=== PATIENT | female | born 1965 | race Asian ===

== ENCOUNTER → 2018-01-24 | Outpatient (CLI) | payer OTHER ==
[2018-01-25 08:07] LABS: RUBEOLA (MEASLES) IGG >300.0 AU/mL (Immune >29.9)
== END | disposition home or self-care (01) ==
LOC: EMPHLTH 12:51
PROVIDERS: ATTEND Internal Medicine
DX: Z02.1 Encounter for pre-employment examination (principal)
CPT/HCPCS: 86706; 86735; 86762; 86765; 86787

== ENCOUNTER → 2018-05-26 | Outpatient (CLI) | payer OTHER ==
[2018-05-26 12:12] LABS: BASOPHILS % (AUTO) 0.6 % (0.0-2.0); EOSINOPHILS % (AUTO) 1.3 % (1.0-6.0); HEMATOCRIT 41.6 % (36-46); HEMOGLOBIN 13.7 g/dL (12.0-16.0); LYMPHOCYTES # (AUTO) 1.5 K/uL (1.0-4.8); LYMPHOCYTES % (AUTO) 23.3 % (22.0-44.0); MEAN CORPUSCULAR HEMOGLOBIN 27.5 pg (26.0-34.0); MEAN CORPUSCULAR VOLUME 83 fL (80-100); MONOCYTES # (AUTO) 0.4 K/uL (0.1-1.0); MONOCYTES % (AUTO) 5.9 % (2.0-9.0); NEUTROPHILS # (AUTO) 4.4 K/uL (1.8-7.7); NEUTROPHILS % (AUTO) 68.9 % (40.0-70.0); PLATELET COUNT (AUTO) 229 K/uL (150-450); RED BLOOD CELL COUNT(AUTO) 4.99 MIL/uL (4.00-5.20); RED CELL DISTRIBUTION WIDTH 13.9 % (11.5-14.5)
[2018-05-26 13:09] LABS: ALANINE AMINOTRANSFERASE 15 U/L (12-78); ALBUMIN 3.8 g/dL (3.4-5.0); ALKALINE PHOSPHATASE 86 U/L (46-116); ANION GAP 7 mmol/L (8-16); ASPARTATE AMINOTRANSFERASE 21 U/L (15-37); BILIRUBIN,TOTAL 0.3 mg/dL (0.1-1.0); CALCIUM, TOTAL 9.1 mg/dL (8.8-10.5); CARBON DIOXIDE 29 mmol/L (22-29); CHLORIDE 102 mmol/L (98-107); CHOL/HDL RATIO 4.7 (3.9-5.7); CHOLESTEROL 228 mg/dL (131-200); CREATININE 0.72 mg/dL (0.60-1.30); GLOMERULAR FILTR. RATE CALC > 60 mL/min (>60); GLUCOSE,RANDOM 92 mg/dL (70-110); HDL CHOLESTEROL 49 mg/dL (40-60); LDL CHOL (CALC.) 153 mg/dL (0-130); POTASSIUM 4.2 mmol/L (3.5-5.1); SODIUM SERUM 138 mmol/L (136-145); THYROID STIMULATING HORMONE 1.74 uIU/mL (0.36-3.74); TOTAL PROTEIN, SERUM 7.8 g/dL (6.4-8.2); TRIGLYCERIDES 128 mg/dL (15-150); UREA NITROGEN, BLOOD 19 mg/dL (7-18)
== END | disposition home or self-care (01) ==
LOC: LABPV 08:00
PROVIDERS: ATTEND Internal Medicine
DX: Z12.11 Encounter for screening for malignant neoplasm of colon (principal); R10.9 Unspecified abdominal pain
CPT/HCPCS: 82306; 84443

== ENCOUNTER → 2018-08-01 | Outpatient (CLI) | payer OTHER | END | disposition home or self-care (01) | LOC: RADPV 07:48 | PROVIDERS: ATTEND Internal Medicine Infectious Disease | DX: K80.20 Calculus of gallbladder without cholecystitis without obstruction (principal); K76.0 Fatty (change of) liver, not elsewhere classified | CPT/HCPCS: 76700 ==

== ENCOUNTER 2018-08-22 18:19 | Emergency (ER) | payer OTHER ==
[~2018-08-22] VITALS: Ht 157.5 cm; Wt 65.9 kg
[2018-08-22] MEDS ORDERED: RANI150T7 PO (18:37)
[2018-08-22] MEDS ORDERED: ATOR40TA28 PO (18:37)
[2018-08-22] MEDS ORDERED: OMEP20 PO (18:37)
[2018-08-22 19:24] LABS: BASOPHILS % (AUTO) 0.2 % (0.0-2.0); EOSINOPHILS % (AUTO) 2.2 % (1.0-6.0); HEMATOCRIT 41.6 % (36-46); HEMOGLOBIN 13.7 g/dL (12.0-16.0); LYMPHOCYTES # (AUTO) 0.6 K/uL (1.0-4.8); MEAN CORPUSCULAR HEMOGLOBIN 27.2 pg (26.0-34.0); MEAN CORPUSCULAR VOLUME 82 fL (80-100); MONOCYTES # (AUTO) 0.7 K/uL (0.1-1.0); MONOCYTES % (AUTO) 6.4 % (2.0-9.0); PLATELET COUNT (AUTO) 223 K/uL (150-450); RED BLOOD CELL COUNT(AUTO) 5.04 MIL/uL (4.00-5.20); RED CELL DISTRIBUTION WIDTH 14.5 % (11.5-14.5)
[2018-08-22 19:25] LABS: NEUTROPHILS % (AUTO) 86.2 % (40.0-70.0)
[2018-08-22 19:36] LABS: ANION GAP 11 mmol/L (8-16); CALCIUM, TOTAL 9.2 mg/dL (8.8-10.5); CARBON DIOXIDE 25 mmol/L (22-29); CHLORIDE 105 mmol/L (98-107); CREATININE 0.72 mg/dL (0.60-1.30); GLOMERULAR FILTR. RATE CALC > 60 mL/min (>60); GLUCOSE,RANDOM 106 mg/dL (70-110); POTASSIUM 3.8 mmol/L (3.5-5.1); SODIUM SERUM 141 mmol/L (136-145); UREA NITROGEN, BLOOD 13 mg/dL (7-18)
[2018-08-22 19:45] LABS: ALANINE AMINOTRANSFERASE 36 U/L (12-78); ALBUMIN 4.1 g/dL (3.4-5.0); ALKALINE PHOSPHATASE 141 U/L (46-116); ASPARTATE AMINOTRANSFERASE 77 U/L (15-37); BILIRUBIN,TOTAL 0.6 mg/dL (0.1-1.0); LIPASE 182 U/L (73-393); TOTAL PROTEIN, SERUM 8.2 g/dL (6.4-8.2)
[2018-08-22 21:52] VITALS: BP 148/100
[2018-08-22] MEDS ORDERED: SODIUM CHLORIDE 0.9% 1,000 ML IV ONE (22:00)
[2018-08-22] MEDS ORDERED: KETOROLAC TROMETHAMINE 30 MG/ML VIAL IVP ONE (22:00)
== END 2018-08-22 23:37 | disposition home or self-care (01) ==
LOC: EMS 18:20
DX: K80.20 Calculus of gallbladder without cholecystitis without obstruction (principal); N95.9 Unspecified menopausal and perimenopausal disorder
CPT/HCPCS: 36415; 76700; 80053; 83690; 84484; 85025; 93005; 96374; 99284; J1885; J7030

== ENCOUNTER → 2018-08-28 | Outpatient (CLI) | payer OTHER ==
[~2018-08-28] MED LIST: ATOR40TA28 PO; IOVERSOL 350 MG/ML 100 ML VIAL ONE; OMEP20 PO; RANI150T7 PO; SODIUM CHLORIDE 0.9% 100 ML ONE
== END | disposition home or self-care (01) ==
LOC: RADMN 08:22
PROVIDERS: ATTEND Internal Medicine
DX: K80.20 Calculus of gallbladder without cholecystitis without obstruction (principal); K57.10 Diverticulosis of small intestine without perforation or abscess without bleeding
CPT/HCPCS: 74177; J7050; Q9967

== ENCOUNTER → 2018-09-26 | Outpatient (CLI) | payer OTHER ==
[~2018-09-26] MED LIST changes: -IOVERSOL 350 MG/ML 100 ML VIAL ONE; -SODIUM CHLORIDE 0.9% 100 ML ONE
[2018-09-26 12:46] LABS: BASOPHILS % (AUTO) 0.6 % (0.0-2.0); EOSINOPHILS % (AUTO) 2.4 % (1.0-6.0); HEMATOCRIT 41.9 % (36-46); HEMOGLOBIN 13.7 g/dL (12.0-16.0); LYMPHOCYTES # (AUTO) 1.9 K/uL (1.0-4.8); MEAN CORPUSCULAR HEMOGLOBIN 27.5 pg (26.0-34.0); MEAN CORPUSCULAR HGB CONC 32.7 G/dL (31.0-37.0); MEAN CORPUSCULAR VOLUME 84 fL (80-100); MONOCYTES # (AUTO) 0.4 K/uL (0.1-1.0); MONOCYTES % (AUTO) 5.7 % (2.0-9.0); NEUTROPHILS # (AUTO) 5.2 K/uL (1.8-7.7); NEUTROPHILS % (AUTO) 67.3 % (40.0-70.0); PLATELET COUNT (AUTO) 231 K/uL (150-450); RED BLOOD CELL COUNT(AUTO) 4.99 MIL/uL (4.00-5.20); RED CELL DISTRIBUTION WIDTH 14.3 % (11.5-14.5)
[2018-09-26 13:25] LABS: ALANINE AMINOTRANSFERASE 8 U/L (12-78); ALKALINE PHOSPHATASE 96 U/L (46-116); ANION GAP 6 mmol/L (8-16); ASPARTATE AMINOTRANSFERASE 19 U/L (15-37); BILIRUBIN,TOTAL 0.4 mg/dL (0.1-1.0); CALCIUM, TOTAL 8.8 mg/dL (8.8-10.5); CARBON DIOXIDE 29 mmol/L (22-29); CHLORIDE 107 mmol/L (98-107); CHOL/HDL RATIO 5.9 (3.9-5.7); CHOLESTEROL 234 mg/dL (131-200); CREATININE 0.75 mg/dL (0.60-1.30); GLOMERULAR FILTR. RATE CALC > 60 mL/min (>60); GLUCOSE,RANDOM 93 mg/dL (70-110); HDL CHOLESTEROL 40 mg/dL (40-60); LDL CHOL (CALC.) 171 mg/dL (0-130); SODIUM SERUM 142 mmol/L (136-145); TOTAL PROTEIN, SERUM 8.1 g/dL (6.4-8.2); TRIGLYCERIDES 115 mg/dL (15-150); UREA NITROGEN, BLOOD 19 mg/dL (7-18)
== END | disposition home or self-care (01) ==
LOC: LABPV 09:35
PROVIDERS: ATTEND Internal Medicine
DX: E78.5 Hyperlipidemia, unspecified (principal); Z79.899 Other long term (current) drug therapy

== ENCOUNTER → 2018-10-10 | Day surgery (SDC) | payer OTHER ==
[2018-10-09 15:00] LABS: BASOPHILS % (AUTO) 0.6 % (0.0-2.0); EOSINOPHILS % (AUTO) 3.8 % (1.0-6.0); HEMATOCRIT 42.2 % (36-46); HEMOGLOBIN 13.6 g/dL (12.0-16.0); LYMPHOCYTES # (AUTO) 1.8 K/uL (1.0-4.8); LYMPHOCYTES % (AUTO) 21.3 % (22.0-44.0); MEAN CORPUSCULAR HEMOGLOBIN 27.6 pg (26.0-34.0); MEAN CORPUSCULAR HGB CONC 32.4 G/dL (31.0-37.0); MEAN CORPUSCULAR VOLUME 85 fL (80-100); MONOCYTES # (AUTO) 0.5 K/uL (0.1-1.0); MONOCYTES % (AUTO) 6.1 % (2.0-9.0); NEUTROPHILS # (AUTO) 5.9 K/uL (1.8-7.7); NEUTROPHILS % (AUTO) 68.2 % (40.0-70.0); PLATELET COUNT (AUTO) 229 K/uL (150-450); RED BLOOD CELL COUNT(AUTO) 4.94 MIL/uL (4.00-5.20)
[2018-10-09 15:32] LABS: ALANINE AMINOTRANSFERASE 12 U/L (12-78); ALBUMIN 4.1 g/dL (3.4-5.0); ALKALINE PHOSPHATASE 99 U/L (46-116); ANION GAP 8 mmol/L (8-16); ASPARTATE AMINOTRANSFERASE 13 U/L (15-37); BILIRUBIN,TOTAL 0.3 mg/dL (0.1-1.0); CALCIUM, TOTAL 9.8 mg/dL (8.8-10.5); CARBON DIOXIDE 28 mmol/L (22-29); CHLORIDE 105 mmol/L (98-107); CREATININE 0.87 mg/dL (0.60-1.30); GLOMERULAR FILTR. RATE CALC > 60 mL/min (>60); GLUCOSE,RANDOM 98 mg/dL (70-110); HCG,QUANTITATIVE 3 mIU/mL (0-6); POTASSIUM 4.1 mmol/L (3.5-5.1); SODIUM SERUM 141 mmol/L (136-145); TOTAL PROTEIN, SERUM 8.2 g/dL (6.4-8.2); UREA NITROGEN, BLOOD 18 mg/dL (7-18)
[~2018-10-10] VITALS: Ht 157.5 cm; Wt 66.0 kg
[~2018-10-10] MED LIST changes: +0.9% SODIUM CHLORIDE 10 ML VIAL IVP ONE; +ACETAMINOPHEN 500 MG TABLET PO PRN; +BUPIVACAINE HCL/PF 0.5% 30 ML VIAL ONE; +CeFAZolin 2 GM/DEXTROSE 50 ML IV ONE; +DEXAMETHASONE SOD PHOS 4 MG/ML VIAL IVP ONE; +FentaNYL CITRATE-PF 100 MCG/2 ML VIAL IVP ONE; +FentaNYL CITRATE-PF 100 MCG/2 ML VIAL IVP PRN; +HYDROmorphone 2 MG/ML SYRINGE IVP PRN; +HYDROmorphone 2 MG/ML SYRINGE ONE; +IBUPROFEN 600 MG TABLET PO PRN; +IBUPROFEN 800 MG TABLET ONE; +IBUPROFEN 800 MG TABLET PO PRN; +IOHEXOL 240 MG/ML 20 ML VIAL ONE; +KETOROLAC TROMETHAMINE 60 MG/2 ML VIAL IM ONE; +LIDOCAINE 2%/EPI 1:200,000/PF 20 ML VIAL ONE; +LIDOCAINE/PF 2% 5 ML VIAL IM ONE; +MEPERIDINE-PF 25 MG/ML VIAL IVP PRN; +MEPERIDINE-PF 25 MG/ML VIAL ONE; +MIDAZOLAM HCL 2 MG/2 ML VIAL IVP ONE; +MetroNIDAZOLE 500 MG/NACL 100 ML IV ONE; +OMEG-135 PO; +ONDANSETRON HCL 4 MG/2 ML VIAL IVP ONE; +PROPOFOL 1% 20 ML VIAL IVP ONE; +RINGERS SOLUTION,LACTATED 0 ML IV ONE; +RINGERS SOLUTION,LACTATED 1,000 ML IV ONE; +ROCURONIUM BROMIDE 10 MG/ML 5 ML VIAL IVP ONE; +SODIUM CHLORIDE 0.9% IRRIG BAG 0 ML IRRIG ONE; +SUCCINYLCHOLINE CHLORIDE 20 MG/ML 10 ML VIAL IVP ONE; +SUGAMMADEX SODIUM 200 MG/2 ML VIAL IVP ONE; +VITAD1000 PO
== END | disposition home or self-care (01) ==
LOC: SURGERY 12:00 → EEVIPCON 14:00
PROVIDERS: ATTEND Surgery
DX: K80.10 Calculus of gallbladder with chronic cholecystitis without obstruction (principal); E78.5 Hyperlipidemia, unspecified; Z79.899 Other long term (current) drug therapy; Z82.49 Family history of ischemic heart disease and other diseases of the circulatory system; Z98.890 Other specified postprocedural states
CPT/HCPCS: 36415; 47562; 80053; 84702; 85025; 88304; 93005; J0330; J0690; J1100; J1170; J1885; J2175; J2250; J2405; J2704; J3010; J3490 ×4; J7120; Q9966

== ENCOUNTER → 2019-09-15 | Outpatient (CLI) | payer OTHER ==
[~2019-09-15] MED LIST changes: -0.9% SODIUM CHLORIDE 10 ML VIAL IVP ONE; -ACETAMINOPHEN 500 MG TABLET PO PRN; -BUPIVACAINE HCL/PF 0.5% 30 ML VIAL ONE; +CHOL100018 PO; -CeFAZolin 2 GM/DEXTROSE 50 ML IV ONE; -DEXAMETHASONE SOD PHOS 4 MG/ML VIAL IVP ONE; -FentaNYL CITRATE-PF 100 MCG/2 ML VIAL IVP ONE; -FentaNYL CITRATE-PF 100 MCG/2 ML VIAL IVP PRN; -HYDROmorphone 2 MG/ML SYRINGE IVP PRN; -HYDROmorphone 2 MG/ML SYRINGE ONE; -IBUPROFEN 600 MG TABLET PO PRN; -IBUPROFEN 800 MG TABLET ONE; -IBUPROFEN 800 MG TABLET PO PRN; -IOHEXOL 240 MG/ML 20 ML VIAL ONE; -KETOROLAC TROMETHAMINE 60 MG/2 ML VIAL IM ONE; -LIDOCAINE 2%/EPI 1:200,000/PF 20 ML VIAL ONE; -LIDOCAINE/PF 2% 5 ML VIAL IM ONE; -MEPERIDINE-PF 25 MG/ML VIAL IVP PRN; -MEPERIDINE-PF 25 MG/ML VIAL ONE; -MIDAZOLAM HCL 2 MG/2 ML VIAL IVP ONE; -MetroNIDAZOLE 500 MG/NACL 100 ML IV ONE; -ONDANSETRON HCL 4 MG/2 ML VIAL IVP ONE; -PROPOFOL 1% 20 ML VIAL IVP ONE; -RINGERS SOLUTION,LACTATED 0 ML IV ONE; -RINGERS SOLUTION,LACTATED 1,000 ML IV ONE; -ROCURONIUM BROMIDE 10 MG/ML 5 ML VIAL IVP ONE; -SODIUM CHLORIDE 0.9% IRRIG BAG 0 ML IRRIG ONE; -SUCCINYLCHOLINE CHLORIDE 20 MG/ML 10 ML VIAL IVP ONE; -SUGAMMADEX SODIUM 200 MG/2 ML VIAL IVP ONE; -VITAD1000 PO
[2019-09-16 07:04] LABS: BASOPHILS % (AUTO) 0.8 % (0.0-2.0); EOSINOPHILS % (AUTO) 0.9 % (1.0-6.0); HEMATOCRIT 44.3 % (36-46); HEMOGLOBIN 14.4 g/dL (12.0-16.0); LYMPHOCYTES # (AUTO) 1.4 K/uL (1.0-4.8); LYMPHOCYTES % (AUTO) 18.8 % (22.0-44.0); MEAN CORPUSCULAR HEMOGLOBIN 27.4 pg (26.0-34.0); MEAN CORPUSCULAR HGB CONC 32.5 G/dL (31.0-37.0); MEAN CORPUSCULAR VOLUME 84 fL (80-100); MONOCYTES # (AUTO) 0.5 K/uL (0.1-1.0); MONOCYTES % (AUTO) 6.4 % (2.0-9.0); NEUTROPHILS # (AUTO) 5.5 K/uL (1.8-7.7); NEUTROPHILS % (AUTO) 73.1 % (40.0-70.0); PLATELET COUNT (AUTO) 256 K/uL (150-450); RED BLOOD CELL COUNT(AUTO) 5.25 MIL/uL (4.00-5.20); RED CELL DISTRIBUTION WIDTH 14.3 % (11.5-14.5)
[2019-09-16 07:11] LABS: HEMOGLOBIN A1C 6.1 % (3.8-5.6)
[2019-09-16 07:28] LABS: ALANINE AMINOTRANSFERASE 14 U/L (12-78); ALBUMIN 4.2 g/dL (3.4-5.0); ALKALINE PHOSPHATASE 86 U/L (46-116); ANION GAP 11 mmol/L (8-16); ASPARTATE AMINOTRANSFERASE 12 U/L (15-37); BILIRUBIN,TOTAL 0.5 mg/dL (0.1-1.0); CALCIUM, TOTAL 9.2 mg/dL (8.8-10.5); CARBON DIOXIDE 30 mmol/L (22-29); CHLORIDE 105 mmol/L (98-107); CHOL/HDL RATIO 4.4 (3.9-5.7); CHOLESTEROL 230 mg/dL (131-200); CREATININE 0.96 mg/dL (0.60-1.30); GLOMERULAR FILTR. RATE CALC > 60 mL/min (>60); GLUCOSE,RANDOM 115 mg/dL (70-110); HDL CHOLESTEROL 52 mg/dL (40-60); LDL CHOL (CALC.) 144 mg/dL (0-130); POTASSIUM 3.2 mmol/L (3.5-5.1); SODIUM SERUM 146 mmol/L (136-145); THYROID STIMULATING HORMONE 1.53 uIU/mL (0.36-3.74); TRIGLYCERIDES 169 mg/dL (15-150); UREA NITROGEN, BLOOD 11 mg/dL (7-18)
== END | disposition home or self-care (01) ==
LOC: LABMN 11:15
PROVIDERS: ATTEND Internal Medicine
DX: Z12.31 Encounter for screening mammogram for malignant neoplasm of breast (principal); E78.5 Hyperlipidemia, unspecified; Z79.899 Other long term (current) drug therapy
CPT/HCPCS: 83036; 84443

== ENCOUNTER → 2019-11-05 | Outpatient (CLI) | payer OTHER ==
[2019-11-05 12:48] LABS: ANION GAP 7 mmol/L (8-16); CARBON DIOXIDE 29 mmol/L (22-29); CHLORIDE 110 mmol/L (98-107); CREATININE 0.64 mg/dL (0.60-1.30); GLOMERULAR FILTR. RATE CALC > 60 mL/min (>60); GLUCOSE,RANDOM 102 mg/dL (70-110); POTASSIUM 3.6 mmol/L (3.5-5.1); SODIUM SERUM 146 mmol/L (136-145); UREA NITROGEN, BLOOD 11 mg/dL (7-18)
== END | disposition home or self-care (01) ==
LOC: LABPV 11:22
PROVIDERS: ATTEND Internal Medicine
DX: E78.6 Lipoprotein deficiency (principal)

== ENCOUNTER → 2020-02-25 | Outpatient (CLI) | payer OTHER ==
[2020-02-25 12:32] LABS: ALANINE AMINOTRANSFERASE 10 U/L (12-78); ALBUMIN 4.1 g/dL (3.4-5.0); ALKALINE PHOSPHATASE 83 U/L (46-116); ANION GAP 10 mmol/L (8-16); ASPARTATE AMINOTRANSFERASE 17 U/L (15-37); BILIRUBIN,TOTAL 0.3 mg/dL (0.1-1.0); CALCIUM, TOTAL 9.7 mg/dL (8.8-10.5); CARBON DIOXIDE 28 mmol/L (22-29); CHLORIDE 105 mmol/L (98-107); CHOLESTEROL 234 mg/dL (131-200); GLOMERULAR FILTR. RATE CALC > 60 mL/min (>60); GLUCOSE,RANDOM 117 mg/dL (70-110); HDL CHOLESTEROL 49 mg/dL (40-60); POTASSIUM 3.9 mmol/L (3.5-5.1); SODIUM SERUM 143 mmol/L (136-145); TOTAL PROTEIN, SERUM 8.1 g/dL (6.4-8.2); TRIGLYCERIDES 119 mg/dL (15-150); UREA NITROGEN, BLOOD 18 mg/dL (7-18)
[2020-02-25 12:33] LABS: CHOL/HDL RATIO 4.8 (3.9-5.7); LDL CHOL (CALC.) 161 mg/dL (0-130)
== END | disposition home or self-care (01) ==
LOC: LABPV 09:15
PROVIDERS: ATTEND Internal Medicine
DX: E87.6 Hypokalemia (principal); Z00.00 Encounter for general adult medical examination without abnormal findings
CPT/HCPCS: 82088; 82306; 84244

== ENCOUNTER → 2020-08-16 | Outpatient (CLI) | payer OTHER ==
[2020-08-16 09:36] LABS: BASOPHILS % (AUTO) 0.8 % (0.0-2.0); EOSINOPHILS % (AUTO) 1.4 % (1.0-6.0); HEMATOCRIT 41.7 % (36-46); HEMOGLOBIN 13.6 g/dL (12.0-16.0); LYMPHOCYTES # (AUTO) 1.4 K/uL (1.0-4.8); LYMPHOCYTES % (AUTO) 18.9 % (22.0-44.0); MEAN CORPUSCULAR HEMOGLOBIN 28.1 pg (26.0-34.0); MEAN CORPUSCULAR HGB CONC 32.6 G/dL (31.0-37.0); MEAN CORPUSCULAR VOLUME 86 fL (80-100); MONOCYTES # (AUTO) 0.5 K/uL (0.1-1.0); MONOCYTES % (AUTO) 6.7 % (2.0-9.0); NEUTROPHILS # (AUTO) 5.2 K/uL (1.8-7.7); NEUTROPHILS % (AUTO) 72.2 % (40.0-70.0); PLATELET COUNT (AUTO) 231 K/uL (150-450); RED BLOOD CELL COUNT(AUTO) 4.84 MIL/uL (4.00-5.20); RED CELL DISTRIBUTION WIDTH 14.1 % (11.5-14.5)
[2020-08-16 09:55] LABS: HEMOGLOBIN A1C 5.6 % (3.8-5.6)
[2020-08-16 09:56] LABS: ALANINE AMINOTRANSFERASE 13 U/L (12-78); ALBUMIN 4.1 g/dL (3.4-5.0); ALKALINE PHOSPHATASE 79 U/L (46-116); ANION GAP 8 mmol/L (8-16); ASPARTATE AMINOTRANSFERASE 14 U/L (15-37); BILIRUBIN,TOTAL 0.5 mg/dL (0.1-1.0); CALCIUM, TOTAL 9.2 mg/dL (8.8-10.5); CARBON DIOXIDE 29 mmol/L (22-29); CHLORIDE 104 mmol/L (98-107); CHOL/HDL RATIO 3.3 (3.9-5.7); CHOLESTEROL 173 mg/dL (131-200); CREATININE 0.77 mg/dL (0.60-1.30); GLOMERULAR FILTR. RATE CALC > 60 mL/min (>60); GLUCOSE,RANDOM 104 mg/dL (70-110); HDL CHOLESTEROL 53 mg/dL (40-60); LDL CHOL (CALC.) 93 mg/dL (0-130); POTASSIUM 3.6 mmol/L (3.5-5.1); SODIUM SERUM 141 mmol/L (136-145); THYROID STIMULATING HORMONE 2.66 uIU/mL (0.36-3.74); TOTAL PROTEIN, SERUM 7.7 g/dL (6.4-8.2); TRIGLYCERIDES 133 mg/dL (15-150); UREA NITROGEN, BLOOD 21 mg/dL (7-18)
== END | disposition home or self-care (01) ==
LOC: LABPV 07:16
PROVIDERS: ATTEND Internal Medicine
DX: Z79.899 Other long term (current) drug therapy (principal); E78.5 Hyperlipidemia, unspecified
CPT/HCPCS: 80053; 80061; 82306; 83036; 84443; 85025

== ENCOUNTER → 2020-08-24 | Outpatient (CLI) | payer OTHER ==
[2020-08-25 10:07] LABS: HEPATITIS C AB (EIA) <0.1 s/co ratio (0.0-0.9); HIV 1-2 SCREEN 4TH GEN W/RFLX Non Reactive (Non Reactive)
== END | disposition home or self-care (01) ==
LOC: LABPV 10:19
PROVIDERS: ATTEND Internal Medicine
DX: Z11.3 Encounter for screening for infections with a predominantly sexual mode of transmission (principal); Z11.59 Encounter for screening for other viral diseases
CPT/HCPCS: 86317; 86704; 86706; 86709; 87340; 87389

== ENCOUNTER 2020-09-26 13:46 | Emergency (ER) | payer OTHER ==
[~2020-09-26] VITALS: Ht 162.6 cm; Wt 68.2 kg
[2020-09-26] MEDS ORDERED: SODIUM CHLORIDE 0.9% 1,000 ML IV ONE (15:15)
[2020-09-26] MEDS: MECLIZINE HCL 25 MG TABLET PO ONE ×2 (15:18→15:23)
[2020-09-26 15:39] LABS: BASOPHILS % (AUTO) 0.5 % (0.0-2.0); EOSINOPHILS % (AUTO) 0.6 % (1.0-6.0); HEMATOCRIT 39.6 % (36-46); LYMPHOCYTES # (AUTO) 1.4 K/uL (1.0-4.8); LYMPHOCYTES % (AUTO) 20.5 % (22.0-44.0); MEAN CORPUSCULAR HEMOGLOBIN 28.2 pg (26.0-34.0); MEAN CORPUSCULAR HGB CONC 32.8 G/dL (31.0-37.0); MEAN CORPUSCULAR VOLUME 86 fL (80-100); MONOCYTES # (AUTO) 0.6 K/uL (0.1-1.0); MONOCYTES % (AUTO) 8.2 % (2.0-9.0); NEUTROPHILS # (AUTO) 4.8 K/uL (1.8-7.7); NEUTROPHILS % (AUTO) 70.2 % (40.0-70.0); PLATELET COUNT (AUTO) 202 K/uL (150-450); RED BLOOD CELL COUNT(AUTO) 4.61 MIL/uL (4.00-5.20); RED CELL DISTRIBUTION WIDTH 13.7 % (11.5-14.5)
[2020-09-26 15:51] LABS: ANION GAP 10 mmol/L (8-16); CALCIUM, TOTAL 8.9 mg/dL (8.8-10.5); CARBON DIOXIDE 29 mmol/L (22-29); CHLORIDE 106 mmol/L (98-107); CREATININE 0.67 mg/dL (0.60-1.30); GLOMERULAR FILTR. RATE CALC > 60 mL/min (>60); GLUCOSE,RANDOM 92 mg/dL (70-110); POTASSIUM 3.5 mmol/L (3.5-5.1); SODIUM SERUM 145 mmol/L (136-145); UREA NITROGEN, BLOOD 17 mg/dL (7-18)
[2020-09-26 16:03] LABS: ALANINE AMINOTRANSFERASE 11 U/L (12-78); ALBUMIN 3.8 g/dL (3.4-5.0); ALKALINE PHOSPHATASE 79 U/L (46-116); ASPARTATE AMINOTRANSFERASE 14 U/L (15-37); BILIRUBIN,TOTAL 0.4 mg/dL (0.1-1.0); HCG,QUANTITATIVE 4 mIU/mL (0-6); PHOSPHORUS 3.5 mg/dL (2.5-4.9); TOTAL PROTEIN, SERUM 7.5 g/dL (6.4-8.2)
[2020-09-26 16:37] VITALS: BP 136/70
== END 2020-09-26 16:40 | disposition home or self-care (01) ==
LOC: EMS 13:53
DX: R42 Dizziness and giddiness (principal); R53.1 Weakness; M54.2 Cervicalgia; E78.00 Pure hypercholesterolemia, unspecified
CPT/HCPCS: 36415; 70450; 80053; 83735; 84100; 84484; 84702; 85025; 93005; 96360; 99285; J7030

== ENCOUNTER → 2020-11-07 | Outpatient (CLI) | payer OTHER | END | disposition home or self-care (01) | LOC: LABPV 09:49 | PROVIDERS: ATTEND Internal Medicine | DX: Z12.11 Encounter for screening for malignant neoplasm of colon (principal) | CPT/HCPCS: 82274 ==

== ENCOUNTER 2021-01-10 10:21 | Emergency (ER) | payer OTHER ==
[~2021-01-10] VITALS: Ht 162.6 cm; Wt 61.0 kg
[2021-01-10] MEDS ORDERED: LIDOCAINE 5% TRANSDERMAL PATCH TD ONE (11:15)
[2021-01-10] MEDS ORDERED: IBUPROFEN 600 MG TABLET PO ONE (11:15)
[2021-01-10 11:45] VITALS: BP 127/91
[2021-01-19] MEDS ORDERED: ROSU10TA72 PO (15:40)
== END 2021-01-10 12:02 | disposition home or self-care (01) ==
LOC: EMS 10:24
DX: S30.0XXA Contusion of lower back and pelvis, initial encounter (principal); E78.00 Pure hypercholesterolemia, unspecified; Z79.899 Other long term (current) drug therapy; W01.198A Fall on same level from slipping, tripping and stumbling with subsequent striking against other object, initial encounter; Y93.89 Activity, other specified; Y92.89 Other specified places as the place of occurrence of the external cause; Y99.8 Other external cause status
CPT/HCPCS: 99283

== ENCOUNTER 2021-01-20 07:10 | Day surgery (SDC) | payer OTHER ==
[2021-01-19 15:26] LABS: COVID AG,FIA SOURCE NASOPHARYNGEAL
[2021-01-19 15:28] LABS: BASOPHILS % (AUTO) 0.4 % (0.0-2.0); EOSINOPHILS % (AUTO) 1.2 % (1.0-6.0); HEMATOCRIT 41.4 % (36-46); HEMOGLOBIN 13.6 g/dL (12.0-16.0); LYMPHOCYTES # (AUTO) 1.6 K/uL (1.0-4.8); LYMPHOCYTES % (AUTO) 19.2 % (22.0-44.0); MEAN CORPUSCULAR HGB CONC 32.8 G/dL (31.0-37.0); MEAN CORPUSCULAR VOLUME 85 fL (80-100); MONOCYTES # (AUTO) 0.6 K/uL (0.1-1.0); MONOCYTES % (AUTO) 6.9 % (2.0-9.0); NEUTROPHILS # (AUTO) 6.2 K/uL (1.8-7.7); NEUTROPHILS % (AUTO) 72.3 % (40.0-70.0); PLATELET COUNT (AUTO) 255 K/uL (150-450); RED BLOOD CELL COUNT(AUTO) 4.86 MIL/uL (4.00-5.20)
[2021-01-19 15:41] LABS: PROTHROMBIN TIME 10.2 SEC (9.4-11.6)
[2021-01-19 15:49] LABS: ANION GAP 12 mmol/L (8-16); CALCIUM, TOTAL 9.2 mg/dL (8.8-10.5); CARBON DIOXIDE 29 mmol/L (22-29); CHLORIDE 107 mmol/L (98-107); CREATININE 0.75 mg/dL (0.60-1.30); GLOMERULAR FILTR. RATE CALC > 60 mL/min (>60); GLUCOSE,RANDOM 104 mg/dL (70-110); POTASSIUM 4.1 mmol/L (3.5-5.1); SODIUM SERUM 148 mmol/L (136-145); UREA NITROGEN, BLOOD 19 mg/dL (7-18)
[~2021-01-20] VITALS: Ht 162.6 cm; Wt 61.4 kg
[~2021-01-20 07:10] MED LIST changes: -ATOR40TA28 PO; -CHOL100018 PO; -OMEG-135 PO; -OMEP20 PO; -RANI150T7 PO; +RINGERS SOLUTION,LACTATED 1,000 ML IV ONE; +ROSU10TA72 PO
[2021-01-20] MEDS ORDERED: BUPIVACAINE 0.25%/EPI 1:200,000/PF 10 ML VIAL ONE (09:27)
[2021-01-20] MEDS ORDERED: MEPERIDINE-PF 25 MG/ML VIAL IVP PRN (10:15)
[2021-01-20] MEDS ORDERED: FentaNYL CITRATE PF 100 MCG/2 ML VIAL IVP PRN (10:15)
[2021-01-20] MEDS ORDERED: HYDROmorphone 2 MG/ML VIAL ONE (10:18)
[2021-01-20] MEDS: HYDROmorphone 2 MG/ML VIAL IVP PRN ×2 (10:21→10:37)
[2021-01-20] MEDS ORDERED: ROSU20TA73 PO (11:45)
[2021-01-20] MEDS ORDERED: ERGO500054 PO (11:45)
[2021-01-20] MEDS ORDERED: FentaNYL CITRATE PF 100 MCG/2 ML VIAL IVP ONE (12:00)
[2021-01-20] MEDS ORDERED: ONDANSETRON HCL 4 MG/2 ML VIAL IVP ONE (12:00)
[2021-01-20] MEDS ORDERED: KETOROLAC TROMETHAMINE 60 MG/2 ML VIAL IM ONE (12:00)
[2021-01-20] MEDS ORDERED: LIDOCAINE/PF 2% 5 ML VIAL IM ONE (12:00)
[2021-01-20] MEDS ORDERED: MIDAZOLAM HCL 2 MG/2 ML VIAL IVP ONE (12:00)
[2021-01-20] MEDS ORDERED: SUCCINYLCHOLINE CHLORIDE 20 MG/ML 10 ML VIAL IVP ONE (12:00)
[2021-01-20] MEDS ORDERED: PROPOFOL 1% 20 ML VIAL IVP ONE (12:00)
[2021-01-20] MEDS ORDERED: OMEPRAZOLE 20 MG CAPSULE PO ONE (12:30)
[2021-01-20] MEDS ORDERED: OXYGEN THERAPY IH SCH (20:00)
== END 2021-01-20 13:00 | disposition home or self-care (01) ==
LOC: SURGERY 07:10
PROVIDERS: ATTEND Obstetrics & Gynecology
DX: N75.1 Abscess of Bartholin's gland (principal); E78.00 Pure hypercholesterolemia, unspecified; Z79.899 Other long term (current) drug therapy; Z90.49 Acquired absence of other specified parts of digestive tract; Z98.890 Other specified postprocedural states; Z88.8 Allergy status to other drugs, medicaments and biological substances; Z79.01 Long term (current) use of anticoagulants
CPT/HCPCS: 36415; 56440; 80048; 85025; 85610; 85730; 87426; 88304; C9803; J0330; J0690; J1170; J1885; J2250; J2405; J2704; J3010; J3490 ×2

== ENCOUNTER 2021-09-05 11:11 | Inpatient (IN) | payer OTHER ==
[~2021-09-05] VITALS: Ht 160 cm; Wt 59.7 kg
[~2021-09-05 11:11] MED LIST changes: +ERGO500054 PO; -RINGERS SOLUTION,LACTATED 1,000 ML IV ONE; -ROSU10TA72 PO; +ROSU20TA73 PO
[2021-09-05] MEDS ORDERED: NITROGLYCERIN 0.4 MG SUBLINGUAL TABLET #25 SL ONE (12:15)
[2021-09-05] MEDS ORDERED: MORPHINE SULFATE 4 MG/ML SYRINGE IVP ONE (12:15)
[2021-09-05] MEDS ORDERED: ONDANSETRON HCL 4 MG/2 ML VIAL IVP ONE (12:15)
[2021-09-05 12:49] LABS: BASOPHILS % (AUTO) 0.3 % (0.0-2.0); HEMATOCRIT 43.7 % (36-46); HEMOGLOBIN 14.5 g/dL (12.0-16.0); LYMPHOCYTES # (AUTO) 1.3 K/uL (1.0-4.8); LYMPHOCYTES % (AUTO) 16.9 % (22.0-44.0); MEAN CORPUSCULAR HEMOGLOBIN 27.8 pg (26.0-34.0); MEAN CORPUSCULAR HGB CONC 33.3 G/dL (31.0-37.0); MEAN CORPUSCULAR VOLUME 84 fL (80-100); MONOCYTES # (AUTO) 0.6 K/uL (0.1-1.0); MONOCYTES % (AUTO) 7.5 % (2.0-9.0); NEUTROPHILS # (AUTO) 5.6 K/uL (1.8-7.7); NEUTROPHILS % (AUTO) 74.3 % (40.0-70.0); PLATELET COUNT (AUTO) 228 K/uL (150-450); RED BLOOD CELL COUNT(AUTO) 5.22 MIL/uL (4.00-5.20); RED CELL DISTRIBUTION WIDTH 13.5 % (11.5-14.5)
[2021-09-05 12:53] LABS: ANION GAP 6 mmol/L (8-16); CALCIUM, TOTAL 9.3 mg/dL (8.8-10.5); CARBON DIOXIDE 29 mmol/L (22-29); CHLORIDE 105 mmol/L (98-107); CREATININE 0.64 mg/dL (0.60-1.30); GLOMERULAR FILTR. RATE CALC > 60 mL/min (>60); GLUCOSE,RANDOM 97 mg/dL (70-110); SODIUM SERUM 140 mmol/L (136-145); UREA NITROGEN, BLOOD 17 mg/dL (7-18)
[2021-09-05 13:02] LABS: COVID AG,FIA SOURCE NASAL SWAB
[2021-09-05 13:05] LABS: ALANINE AMINOTRANSFERASE 10 U/L (12-78); ALBUMIN 4.1 g/dL (3.4-5.0); ALKALINE PHOSPHATASE 76 U/L (46-116); ASPARTATE AMINOTRANSFERASE 14 U/L (15-37); CREATINE KINASE, TOTAL ONLY 75 U/L (26-192)
[2021-09-05 13:10] LABS: B-TYPE NATRIURETIC PEPTIDE 29 pg/mL (0-100)
[2021-09-05 13:18] LABS: BILIRUBIN,TOTAL 0.5 mg/dL (0.1-1.0)
[2021-09-05] MEDS: PB/HYOSCY/ATR/SCOP/LIDO/MAALOX 55 ML BOTTLE PO ONE ×2 (14:00→14:47)
[2021-09-05] MEDS ORDERED: ACETAMINOPHEN 325 MG TABLET PO PRN (14:00)
[2021-09-05] MEDS ORDERED: OxyCODONE HCL/ACETAMINOPHEN 5-325 MG TABLET PO PRN (14:00)
[2021-09-05] MEDS ORDERED: ONDANSETRON HCL 4 MG/2 ML VIAL IVP PRN (14:00)
[2021-09-05] MEDS ORDERED: MORPHINE SULFATE 4 MG/ML SYRINGE IVP PRN (14:00)
[2021-09-05] MEDS ORDERED: ZOLPIDEM TARTRATE 5 MG TABLET PO PRN (14:00)
[2021-09-05] MEDS ORDERED: PANTOPRAZOLE SODIUM 40 MG/VIAL IVP ONE (14:15)
[2021-09-05] MEDS: DOCUSATE SODIUM 100 MG CAPSULE PO SCH (21:00)
[2021-09-05 21:19] VITALS: BP 138/91
[2021-09-05] MEDS: PANTOPRAZOLE SODIUM 40 MG/VIAL IVP SCH (21:48)
[2021-09-05 23:32] VITALS: BP 99/64
[2021-09-06 03:30] VITALS: BP 99/55
[2021-09-06 08:05] VITALS: BP 109/59
[2021-09-06] MEDS: PANTOPRAZOLE SODIUM 40 MG/VIAL IVP SCH (08:23)
[2021-09-06] MEDS: DOCUSATE SODIUM 100 MG CAPSULE PO SCH (08:32)
[2021-09-06] MEDS ORDERED: PANTOPRAZOLE SODIUM 40 MG DR TABLET PO SCH (09:00)
[2021-09-06] MEDS ORDERED: PANT-31 PO (12:01)
[2021-09-06 12:35] VITALS: BP 107/64
== END 2021-09-06 14:15 | disposition home or self-care (01) | DRG 313 ==
LOC: EMS 11:11 → 5S 14:00
PROVIDERS: ADMIT Internal Medicine; ATTEND Internal Medicine
DX: R07.9 Chest pain, unspecified (principal); K21.9 Gastro-esophageal reflux disease without esophagitis; E78.00 Pure hypercholesterolemia, unspecified; E78.5 Hyperlipidemia, unspecified; F41.9 Anxiety disorder, unspecified; I10 Essential (primary) hypertension; Z20.822 Contact with and (suspected) exposure to COVID-19; R10.9 Unspecified abdominal pain; K80.20 Calculus of gallbladder without cholecystitis without obstruction
CPT/HCPCS: 70450; 71045; 76700; 80053; 82550; 83880; 84484; 85025; 93005; 93306; 99285; C9113; J2270; J2405; 36415-L1; 36415-TC

== ENCOUNTER → 2021-09-14 | Outpatient (CLI) | payer OTHER ==
[~2021-09-14] MED LIST changes: +PANT-31 PO
[2021-09-14 08:57] LABS: BASOPHILS % (AUTO) 0.5 % (0.0-2.0); EOSINOPHILS % (AUTO) 1.5 % (1.0-6.0); HEMATOCRIT 43.4 % (36-46); HEMOGLOBIN 14.7 g/dL (12.0-16.0); LYMPHOCYTES # (AUTO) 1.4 K/uL (1.0-4.8); LYMPHOCYTES % (AUTO) 22.2 % (22.0-44.0); MEAN CORPUSCULAR HGB CONC 33.8 G/dL (31.0-37.0); MEAN CORPUSCULAR VOLUME 83 fL (80-100); MONOCYTES # (AUTO) 0.4 K/uL (0.1-1.0); MONOCYTES % (AUTO) 6.2 % (2.0-9.0); NEUTROPHILS # (AUTO) 4.5 K/uL (1.8-7.7); NEUTROPHILS % (AUTO) 69.6 % (40.0-70.0); PLATELET COUNT (AUTO) 222 K/uL (150-450); RED BLOOD CELL COUNT(AUTO) 5.24 MIL/uL (4.00-5.20); RED CELL DISTRIBUTION WIDTH 13.8 % (11.5-14.5)
[2021-09-14 09:21] LABS: HEMOGLOBIN A1C 5.9 % (3.8-5.6)
[2021-09-14 09:24] LABS: ALANINE AMINOTRANSFERASE 14 U/L (12-78); ALBUMIN 4.2 g/dL (3.4-5.0); ALKALINE PHOSPHATASE 89 U/L (46-116); ANION GAP 7 mmol/L (8-16); ASPARTATE AMINOTRANSFERASE 16 U/L (15-37); BILIRUBIN,TOTAL 0.4 mg/dL (0.1-1.0); CALCIUM, TOTAL 9.6 mg/dL (8.8-10.5); CARBON DIOXIDE 30 mmol/L (22-29); CHLORIDE 104 mmol/L (98-107); CHOL/HDL RATIO 4.1 (3.9-5.7); CHOLESTEROL 224 mg/dL (131-200); CREATININE 0.76 mg/dL (0.60-1.30); GLOMERULAR FILTR. RATE CALC > 60 mL/min (>60); GLUCOSE,RANDOM 105 mg/dL (70-110); HDL CHOLESTEROL 55 mg/dL (40-60); LDL CHOL (CALC.) 133 mg/dL (0-130); POTASSIUM 4.2 mmol/L (3.5-5.1); SODIUM SERUM 141 mmol/L (136-145); THYROID STIMULATING HORMONE 2.47 uIU/mL (0.36-3.74); TOTAL PROTEIN, SERUM 8.2 g/dL (6.4-8.2); TRIGLYCERIDES 182 mg/dL (15-150); UREA NITROGEN, BLOOD 15 mg/dL (7-18)
== END | disposition home or self-care (01) ==
LOC: LABPV 07:49
PROVIDERS: ATTEND Internal Medicine Geriatric Medicine
DX: Z00.00 Encounter for general adult medical examination without abnormal findings (principal)
CPT/HCPCS: 80053; 80061; 82043; 82306; 82570; 82607; 82746; 83036; 84443; 85025

== ENCOUNTER → 2021-11-08 | Outpatient (CLI) | payer OTHER ==
[~2021-11-08] MED LIST changes: +REGADENOSON 0.4 MG/5 ML PF SYRINGE IVP ONE; +SESTAMIBI TC99M/UD ISOTOPE 1 EA INJ INJ ONE
[2021-11-08 10:41] VITALS: BP 107/79
[2021-11-08 10:47] VITALS: BP 114/82
== END | disposition home or self-care (01) ==
LOC: MSR 08:03
PROVIDERS: ATTEND Internal Medicine Cardiovascular Disease
DX: I50.1 Left ventricular failure, unspecified (principal); I25.9 Chronic ischemic heart disease, unspecified
CPT/HCPCS: 78452; 93017; A9500

== ENCOUNTER → 2021-11-09 | Outpatient (CLI) | payer OTHER ==
[~2021-11-09] MED LIST changes: -REGADENOSON 0.4 MG/5 ML PF SYRINGE IVP ONE; -SESTAMIBI TC99M/UD ISOTOPE 1 EA INJ INJ ONE
== END | disposition home or self-care (01) ==
LOC: RADPV 11:16
PROVIDERS: ATTEND Internal Medicine Cardiovascular Disease
DX: I50.1 Left ventricular failure, unspecified (principal); I25.9 Chronic ischemic heart disease, unspecified
CPT/HCPCS: 93306

== ENCOUNTER 2022-01-17 09:19 | Day surgery (SDC) | payer OTHER ==
[2022-01-15 12:51] LABS: COVID AG,FIA SOURCE NASAL SWAB
[~2022-01-17] VITALS: Ht 160 cm; Wt 60.4 kg
[~2022-01-17 09:19] MED LIST changes: -ERGO500054 PO; +OMEP20 PO; -PANT-31 PO
[2022-01-17] MEDS ORDERED: SODIUM CHLORIDE 0.9% 1,000 ML IV ONE (09:30)
[2022-01-17] MEDS ORDERED: PROPOFOL 1% 20 ML VIAL IVP ONE (12:00)
[2022-01-17] MEDS ORDERED: LIDOCAINE/PF 2% 5 ML VIAL IM ONE (12:00)
[2022-01-17] MEDS ORDERED: OXYGEN THERAPY IH SCH (20:00)
== END 2022-01-17 13:05 | disposition home or self-care (01) ==
LOC: SURGERY 09:19
PROVIDERS: ATTEND Specialist
DX: D12.3 Benign neoplasm of transverse colon (principal); D12.5 Benign neoplasm of sigmoid colon; K29.50 Unspecified chronic gastritis without bleeding; K31.7 Polyp of stomach and duodenum; Z20.822 Contact with and (suspected) exposure to COVID-19; E78.00 Pure hypercholesterolemia, unspecified; Z82.49 Family history of ischemic heart disease and other diseases of the circulatory system; Z83.3 Family history of diabetes mellitus; Z90.49 Acquired absence of other specified parts of digestive tract; Z98.890 Other specified postprocedural states; Z79.899 Other long term (current) drug therapy
CPT/HCPCS: 87426; 45380; 43239; C9803; C1769; J2704; J3490

== ENCOUNTER → 2022-07-06 | Outpatient (CLI) | payer OTHER ==
[2022-07-06 09:15] LABS: BASOPHILS % (AUTO) 1.1 % (0.0-2.0); EOSINOPHILS % (AUTO) 2.5 % (1.0-6.0); HEMOGLOBIN 13.8 g/dL (12.0-16.0); LYMPHOCYTES # (AUTO) 1.3 K/uL (1.0-4.8); LYMPHOCYTES % (AUTO) 21.6 % (22.0-44.0); MEAN CORPUSCULAR HEMOGLOBIN 28.5 pg (26.0-34.0); MEAN CORPUSCULAR HGB CONC 33.6 G/dL (31.0-37.0); MEAN CORPUSCULAR VOLUME 85 fL (80-100); MONOCYTES # (AUTO) 0.3 K/uL (0.1-1.0); MONOCYTES % (AUTO) 5.2 % (2.0-9.0); NEUTROPHILS # (AUTO) 4.3 K/uL (1.8-7.7); NEUTROPHILS % (AUTO) 69.6 % (40.0-70.0); PLATELET COUNT (AUTO) 223 K/uL (150-450); RED BLOOD CELL COUNT(AUTO) 4.84 MIL/uL (4.00-5.20)
[2022-07-06 09:27] LABS: HEMOGLOBIN A1C 5.9 % (3.8-5.6)
[2022-07-06 09:32] LABS: ALANINE AMINOTRANSFERASE 14 U/L (12-78); ALBUMIN 4.1 g/dL (3.4-5.0); ALKALINE PHOSPHATASE 91 U/L (46-116); ANION GAP 5 mmol/L (8-16); ASPARTATE AMINOTRANSFERASE 18 U/L (15-37); BILIRUBIN,TOTAL 0.5 mg/dL (0.1-1.0); CALCIUM, TOTAL 9.2 mg/dL (8.8-10.5); CARBON DIOXIDE 29 mmol/L (22-29); CHLORIDE 104 mmol/L (98-107); CHOL/HDL RATIO 4.1 (3.9-5.7); CHOLESTEROL 243 mg/dL (131-200); CREATININE 0.71 mg/dL (0.60-1.30); GLOMERULAR FILTR. RATE CALC > 60 mL/min (>60); GLUCOSE,RANDOM 96 mg/dL (70-110); HDL CHOLESTEROL 60 mg/dL (40-60); LDL CHOL (CALC.) 154 mg/dL (0-130); POTASSIUM 4.1 mmol/L (3.5-5.1); SODIUM SERUM 138 mmol/L (136-145); TOTAL PROTEIN, SERUM 8.1 g/dL (6.4-8.2); TRIGLYCERIDES 143 mg/dL (15-150); UREA NITROGEN, BLOOD 17 mg/dL (7-18)
[2022-07-06 09:58] LABS: THYROID STIMULATING HORMONE 1.46 uIU/mL (0.36-3.74)
[2022-07-06 11:19] LABS: ERYTHROCYTE SEDIMENTATION RATE 22 MM/HR (0-20)
[2022-07-06 15:40] LABS: FOLATE SERUM 8.2 ng/mL (5.4-)
== END | disposition home or self-care (01) ==
LOC: LABMN 08:41
PROVIDERS: ATTEND Internal Medicine Geriatric Medicine
DX: K21.9 Gastro-esophageal reflux disease without esophagitis (principal); E78.5 Hyperlipidemia, unspecified
CPT/HCPCS: 80053; 80061; 82607; 82746; 83036; 84443; 85025; 85651

== ENCOUNTER → 2022-09-18 | Outpatient (CLI) | payer OTHER | END | disposition home or self-care (01) | LOC: RADMN 16:14 | PROVIDERS: ATTEND Internal Medicine Geriatric Medicine | DX: M47.817 Spondylosis without myelopathy or radiculopathy, lumbosacral region (principal); M48.07 Spinal stenosis, lumbosacral region; M47.814 Spondylosis without myelopathy or radiculopathy, thoracic region; M48.04 Spinal stenosis, thoracic region; M25.78 Osteophyte, vertebrae | CPT/HCPCS: 72070; 72110 ==

== ENCOUNTER → 2023-01-18 | Outpatient (CLI) | payer OTHER ==
[2023-01-18 07:49] LABS: BASOPHILS % (AUTO) 0.8 % (0.0-2.0); EOSINOPHILS % (AUTO) 2.6 % (1.0-6.0); HEMATOCRIT 41.4 % (36-46); HEMOGLOBIN 13.8 g/dL (12.0-16.0); LYMPHOCYTES # (AUTO) 1.3 K/uL (1.0-4.8); LYMPHOCYTES % (AUTO) 19.2 % (22.0-44.0); MEAN CORPUSCULAR HEMOGLOBIN 28.5 pg (26.0-34.0); MEAN CORPUSCULAR HGB CONC 33.4 G/dL (31.0-37.0); MEAN CORPUSCULAR VOLUME 85 fL (80-100); MONOCYTES # (AUTO) 0.4 K/uL (0.1-1.0); MONOCYTES % (AUTO) 5.5 % (2.0-9.0); NEUTROPHILS # (AUTO) 4.7 K/uL (1.8-7.7); NEUTROPHILS % (AUTO) 71.9 % (40.0-70.0); PLATELET COUNT (AUTO) 231 K/uL (150-450); RED BLOOD CELL COUNT(AUTO) 4.86 MIL/uL (4.00-5.20); RED CELL DISTRIBUTION WIDTH 13.9 % (11.5-14.5); WHITE BLOOD COUNT (AUTO) 6.6 K/uL (4.5-11.0)
[2023-01-18 07:56] LABS: HEMOGLOBIN A1C 5.6 % (3.8-5.6)
[2023-01-18 09:39] LABS: ALANINE AMINOTRANSFERASE 16 U/L (12-78); ALBUMIN 3.9 g/dL (3.4-5.0); ALKALINE PHOSPHATASE 87 U/L (46-116); ANION GAP 8 mmol/L (8-16); ASPARTATE AMINOTRANSFERASE 15 U/L (15-37); BILIRUBIN,TOTAL 0.4 mg/dL (0.1-1.0); CARBON DIOXIDE 27 mmol/L (22-29); CHLORIDE 105 mmol/L (98-107); CHOL/HDL RATIO 3.1 (3.9-5.7); CHOLESTEROL 178 mg/dL (131-200); CREATININE 0.79 mg/dL (0.60-1.30); GLOMERULAR FILTR. RATE CALC > 60 mL/min (>60); GLUCOSE,RANDOM 106 mg/dL (70-110); HDL CHOLESTEROL 58 mg/dL (40-60); LDL CHOL (CALC.) 94 mg/dL (0-130); POTASSIUM 3.9 mmol/L (3.5-5.1); SODIUM SERUM 140 mmol/L (136-145); THYROID STIMULATING HORMONE 3.17 uIU/mL (0.36-3.74); TOTAL PROTEIN, SERUM 7.7 g/dL (6.4-8.2); TRIGLYCERIDES 129 mg/dL (15-150); UREA NITROGEN, BLOOD 14 mg/dL (7-18)
== END | disposition home or self-care (01) ==
LOC: LABMN 07:23
PROVIDERS: ATTEND Internal Medicine Geriatric Medicine
DX: E78.5 Hyperlipidemia, unspecified (principal); G47.33 Obstructive sleep apnea (adult) (pediatric); K59.03 Drug induced constipation
CPT/HCPCS: 80053; 80061; 82306; 82607; 82746; 83036; 84443; 85025